=== PATIENT | female | born 1945 | race Caucasian/White ===

== ENCOUNTER → 2021-05-28 | Outpatient (CLI) | payer MEDICARE | END | disposition home or self-care (01) | LOC: RAD 13:53 | PROVIDERS: ATTEND Internal Medicine | DX: M81.0 Age-related osteoporosis without current pathological fracture (principal) ==

== ENCOUNTER → 2021-11-05 | Outpatient (CLI) | payer OTHER | END | disposition home or self-care (01) | LOC: US 08:22 | PROVIDERS: ATTEND Internal Medicine | DX: N32.89 Other specified disorders of bladder (principal); N18.31 Chronic kidney disease, stage 3a; R10.84 Generalized abdominal pain; Z90.710 Acquired absence of both cervix and uterus; Z90.722 Acquired absence of ovaries, bilateral ==

== ENCOUNTER → 2022-02-11 | Outpatient (CLI) | payer OTHER | END | disposition home or self-care (01) | LOC: CT 08:41 | PROVIDERS: ATTEND Internal Medicine | DX: K57.32 Diverticulitis of large intestine without perforation or abscess without bleeding (principal); R59.9 Enlarged lymph nodes, unspecified; M41.84 Other forms of scoliosis, thoracic region; M48.061 Spinal stenosis, lumbar region without neurogenic claudication ==

== ENCOUNTER → 2022-03-14 | Outpatient (CLI) | payer OTHER | END | disposition home or self-care (01) | LOC: CARD 11:57 | PROVIDERS: ATTEND Internal Medicine | DX: I10 Essential (primary) hypertension (principal); I31.3 Pericardial effusion (noninflammatory) ==